=== PATIENT | female | born 1995 | race Asian ===

== ENCOUNTER 2023-12-09 20:52 | Emergency (ER) | payer OTHER, SELFPAY ==
[2023-12-09 21:01] VITALS: BP 133/85
[2023-12-09 21:18] LABS: % Basophils 0.8 % (0-2); % Eosinophils 3.1 % (0-6); % Immature Granulocytes 0.3 % (0-0.5); % Lymphocytes 34.6 % (20.5-51.1); % Monocytes 6.6 % (1.7-9.3); % Neutrophils 54.6 % (42.2-75.2); Absolute Basophils 0.1 10^3/uL (0-0.2); Absolute Eosinophils 0.2 10^3/uL (0-0.7); Absolute Lymphocytes 2.6 10^3/uL (1.2-3.4); Absolute Monocytes 0.5 10^3/uL (0.1-0.6); Absolute Neutrophils 4.1 10^3/uL (1.4-6.5); Hematocrit 35.4 % (37.0-47.0); Hemoglobin 12.5 g/dL (12.0-16.0); Mean Corp Hgb Conc. 35.3 g/dL (33.0-37.0); Mean Corpuscular Hgb 29.7 pg (27.0-31.0); Mean Corpuscular Volume 84.1 fL (81.0-99.0); Mean Platelet Volume 9.4 fL (7.4-10.4); Nucleated Red Blood Cells % 0 %; Platelet Count 241 10^3/uL (130-400); Red Blood Cell Count 4.21 10^6/uL (4.20-5.40); Red Cell Dist. Width 12.8 % (11.5-14.5); White Blood Cell Count 7.4 10^3/uL (4.8-10.8)
[2023-12-09 21:34] LABS: Blood Urea Nitrogen 16 mg/dl (7-17); Calcium 9.5 mg/dl (8.4-10.2); Carbon Dioxide 26 mmol/L (22-30); Chloride 105 mmol/L (98-107); Glucose 98 mg/dl (70-99); Potassium 4.8 mmol/L (3.5-5.1); Sodium 134 mmol/L (135-145); eGFR > 60.00
--- NOTE | 2023-12-09 21:59 | ED.GENMED ---
History of Present Illness
General
Chief Complaint: Vaginal Bleeding
Time Seen by Provider: 12/09/23 21:43
Travel History
Have you had any contact with someone who has COVID-19?: No
Do you have any symptoms of coronavirus? Fever > 100 degrees, chills, cough, shortness of breath, sore throat, loss of taste or smell, muscle aches, or headache?: No
History of Present Illness
History of Present Illness:
28-year-old female, G1, P0 presents to the emergency department for evaluation of vaginal spotting for the past 9 to 10 days. She has taken several home test that were all positive. Her last full period began on October 22. States that
this episode of bleeding was delayed from her normal menstrual cycle. Denies any abdominal pain. Reports that she uses a diva cup and 1 pad daily, amount of bleeding is substantially less than her typical menstrual cycle. Denies any fevers or
chills.
Review of Systems
Review of Systems
Allergies reviewed?: Yes
All Other Systems: ROS reviewed and negative except as documented in HPI and ROS
Phy Exam
Physical Exam
Physical Exam:
GEN: Well appearing, NAD, WDWN
HEENT: Oral mucosa moist, no scleral icterus
Cardiac: Regular rate
Lung: No respiratory distress, no tachypnea
MSK: No gross deformity or injuries
Skin: Good color, no pallor or jaundice, no rashes
Neuro: AO x3, moves all extremities freely
Psych: Calm, cooperative
Course
Orders/Labs/Results
Orders:
Orders
12/09/23 21:04
Pulse Ox/spot Check [RESP] Urgent
Quantity: 1
Special Instructions: ON ROOM AIR
12/09/23 21:10
Type+Screen Urgent
Basic Metabolic Panel Urgent
Beta HCG Quantitative Urgent
Is this a screen?: No
Complete Blood Count/With Diff Urgent
12/09/23 22:06
US W Transvaginal Urgent
Comment:
Reason For Exam: vag bleeding
Abnormal Lab Results
12/09/23
21:10
Hct 35.4 L %
(37.0-47.0)
Sodium 134 L mmol/L
(135-145)
12/09/23 21:10
12/09/23 21:10
Vital Signs
Initial and Last Documented VS:
Initial Vital Signs
Temp Pulse Resp BP Pulse Ox
99.2 F 74 15 133/85 99
12/09/23 21:01 12/09/23 21:01 12/09/23 21:01 12/09/23 21:01 12/09/23 21:01
Last Documented Vital Signs
Temp Pulse Resp BP Pulse Ox
99.2 F 72 14 113/76 98
12/09/23 21:01 12/10/23 00:40 12/10/23 00:40 12/10/23 00:40 12/10/23 00:40
MDM/Problems Addressed
MDM/Problems Addressed:
Patient is identified to have an IUP however uncertain if viable given lack of detectable cardiac activity. Certainly may represent early trimester with implantation bleeding but cannot discount the potential for threatened miscarriage.
Importance of close LITIGATION COUNSEL follow-up to discuss hCG trending and repeat ultrasound, her OB provider is through [facility] and she will contact them on Tuesday although incidentally has an appointment in 2 weeks
*Critical Care Note
Total Time (30-74mins, 75-104mins- exclusive of procedures): Not Applicable
ED Attending Note
-
Portions of this chart may have been created with voice recognition software.� Occasional wrong word or��sound alike� substitutions may have occurred due to the inherent limitations of voice recognition software.
Discharge Plan
Departure
Patient Disposition: Home (Routine Discharge)
Date of Disposition: 12/10/23
Time of Disposition: 00:04
Patient with high blood pressure during this ER visit?: No
Discharge Problem:
Miscarriage, threatened, early
Instructions: Threatened Miscarriage (DC)
Referrals:
UNKNOWN - PT DOES,NOT KNOW [Family Provider] -
Activity Restrictions/Additional Instructions:
Your ultrasound shows a gestational sac within the uterus that suggests an early intrauterine however there is no visible heart activity. This could indicate early or could indicate an impending miscarriage. You will need a
repeat hormone blood test within 1 to 2 weeks as well as a potential repeat ultrasound during that time. Please contact your [facility] on Tuesday to discuss next steps
Interventions
Interventions:
*Risk Screen - Suicide Last Done: 12/09/23 21:01
*General Assessment Last Done: 12/09/23 21:01
*Neglect/Abuse Screening Last Done: 12/09/23 21:01
ED- Fall Risk Assessment Last Done: 12/10/23 00:00
*ED COVID-19 Vaccine History Last Done: 12/09/23 22:21
*Nursing Disposition Last Done: 12/10/23 00:40
ED-Female Genitourinary Assessment Last Done: 12/09/23 22:22
Discharge Date and Time
Discharge Date/Time: 12/10/23 00:42
Print Language: GUYANESE
[2023-12-09 22:20] VITALS: BMI 21.8
[2023-12-10 00:38] VITALS: BP 113/76
[2023-12-10 00:40] VITALS: BP 113/76
== END 2023-12-10 00:42 | disposition home or self-care (01) ==
LOC: EMR 20:52
PROVIDERS: Emergency Medicine; EMERGENCY PHYSICIAN Emergency Medicine
DX: O20.0 Threatened abortion (principal); Z3A.01 Less than 8 weeks gestation of pregnancy
CPT/HCPCS: 99284; 76801; 76817; 80048; 84702; 85025; 86850; 86900; 86901

== ENCOUNTER → 2024-02-28 12:32 | Emergency (ER) | payer OTHER, SELFPAY ==
[2024-02-28 12:35] VITALS: BP 109/71
--- NOTE | 2024-02-28 12:42 | ED.GENMED ---
History of Present Illness
<Gayle Spicer PA-C - Last Filed: 02/28/24 17:30>
General
Chief Complaint: Chest Pain
Source: patient
Exam Limitations: none
Time Seen by Provider: 02/28/24 12:41
Nursing documentation reviewed up to this point in time: agreed with
History of Present Illness
History of Present Illness:
This is a 28-year-old female with a history of hypothyroidism who is presenting emergency department today with concerns of left-sided chest discomfort/spasm. Patient states that this started 5 days ago after she was lifting boxes one day.
Patient states that she will feel a spasm and discomfort in her left chest that will come and go. Patient states that there is nothing particularly makes her symptoms worse. Patient states that she notices that the pain will get better if she
walks around. Patient denies any pain or swelling her legs, patient denies any recent long distance travel, patient [place] any shortness of breath. Patient [place] any palpitations. Patient denies any trauma to the chest wall. Patient has had spasms
before but has never lasted this long. 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 Patient states that her current is complicated by hypothyroidism and subchorionic hemorrhage which is being managed by [facility]
maternal medicine. This is her first .
Review of Systems
<Gayle Spicer PA-C - Last Filed: 02/28/24 17:30>
Review of Systems
All Other Systems: ROS reviewed and negative except as documented in HPI and ROS
Phy Exam
<Gayle Spicer PA-C - Last Filed: 02/28/24 17:30>
Physical Exam
Physical Exam:
General: Patient is well appearing and in no acute distress; non-toxic
Skin: Warm and dry, no rashes or lesions
Head: Normocephalic, atraumatic
Eyes: Sclera non-icteric. EOMs intact. PERRLA.
Cardiac: Regular rate and rhythm, no murmurs
Peripheral Vascular: No lower extremity swelling or edema, no signs of DVT
Pulm: Normal respiratory effort
Abdomen: No abdominal tenderness
Musculoskeletal: Mild tenderness to palpation of the external chest wall. Palpable spasm noted in the left pectoralis.
Neuro: CN II-XII intact, no focal neurologic deficits.
Psychiatric: Appropriate mood and affect.
Scores
<Gayle Spicer PA-C - Last Filed: 02/28/24 17:30>
Heart Score for Chest Pain Patients
STEMI patient?: No
History: Slightly or Non-Suspicious
ECG: Normal
Age: </= 45 years
Risk Factors: No Risk Factors
Troponin: </= Normal Limit
Heart Score for Chest Pain Patients: 0
Heart Score Risk: 2.5% MACE over next 6 weeks
Course
<Gayle Spicer PA-C - Last Filed: 02/28/24 17:30>
Orders/Labs/Results
Orders:
Orders
02/28/24 12:38
ECG [Electrocardiogram (*1)] Urgent
Reason for Study: Chest Pain
EKG- Treatment ONCE
02/28/24 13:00
Heart Tones ONCE
02/28/24 13:05
Complete Blood Count/With Diff Urgent
Comprehensive Metabolic Panel Urgent
Troponin I Urgent
02/28/24 14:07
Peripheral Venous Lwr Ext Bilat US [US Periph Venous LOWER Ext Chris] Urgent
Comment:
Reason For Exam: chest pain, shortness of breath
Abnormal Lab Results
02/28/24
13:05
RBC 3.96 L 10^6/uL
(4.20-5.40)
Hgb 11.9 L g/dL
(12.0-16.0)
Hct 32.7 L %
(37.0-47.0)
Lymphocytes % 17.2 L %
(20.5-51.1)
Sodium 134 L mmol/L
(135-145)
Creatinine 0.5 L mg/dL
(0.6-1.0)
Glucose 104 H mg/dl
(70-99)
02/28/24 13:05
02/28/24 13:05
Vital Signs
Initial and Last Documented VS:
Initial Vital Signs
Temp Pulse Resp BP Pulse Ox
98.4 F 66 18 109/71 100
02/28/24 12:35 02/28/24 12:35 02/28/24 12:35 02/28/24 12:35 02/28/24 12:35
Last Documented Vital Signs
Temp Pulse Resp BP Pulse Ox
98.4 F 70 18 108/70 99
02/28/24 12:35 02/28/24 15:00 02/28/24 12:35 02/28/24 15:00 02/28/24 15:00
<Jr Munguia MD - Last Filed: 02/28/24 14:37>
Orders/Labs/Results
Orders:
Orders
02/28/24 12:38
ECG [Electrocardiogram (*1)] Urgent
Reason for Study: Chest Pain
EKG- Treatment ONCE
02/28/24 13:00
Heart Tones ONCE
02/28/24 13:05
Complete Blood Count/With Diff Urgent
Comprehensive Metabolic Panel Urgent
Troponin I Urgent
02/28/24 14:07
Peripheral Venous Lwr Ext Bilat US [US Periph Venous LOWER Ext Chris] Urgent
Comment:
Reason For Exam: chest pain, shortness of breath
Abnormal Lab Results
02/28/24
13:05
RBC 3.96 L 10^6/uL
(4.20-5.40)
Hgb 11.9 L g/dL
(12.0-16.0)
Hct 32.7 L %
(37.0-47.0)
Lymphocytes % 17.2 L %
(20.5-51.1)
Sodium 134 L mmol/L
(135-145)
Creatinine 0.5 L mg/dL
(0.6-1.0)
Glucose 104 H mg/dl
(70-99)
02/28/24 13:05
02/28/24 13:05
Vital Signs
Initial and Last Documented VS:
Initial Vital Signs
Temp Pulse Resp BP Pulse Ox
98.4 F 66 18 109/71 100
02/28/24 12:35 02/28/24 12:35 02/28/24 12:35 02/28/24 12:35 02/28/24 12:35
Last Documented Vital Signs
Temp Pulse Resp BP Pulse Ox
98.4 F 70 18 108/70 99
02/28/24 12:35 02/28/24 15:00 02/28/24 12:35 02/28/24 15:00 02/28/24 15:00
Jeremylt;Gayle Spicer PA-C - Last Filed: 02/28/24 17:30>
MDM/Problems Addressed
Differential Diagnosis Includes:
Differentials include pulmonary embolism, musculoskeletal sprain/strain, electrolyte derangement, ACS
MDM/Problems Addressed:
Chest pain/spasm:
This is a 28-year-old female with a history of hypothyroidism who is presenting emergency department today with concerns of left-sided chest discomfort/spasm. Patient states that this started 5 days ago after she was lifting boxes one day.
Patient states that she will feel a spasm and discomfort in her left chest that will come and go. On exam, patient is well appearing and her vitals are stable. No murmurs are appreciated on exam. There is palpable spasm noted on the left external
chest wall with no signs of trauma. Patient's vitals are stable. Her CBC and CMP are unremarkable. Symptoms likely musculoskeletal in nature considering palpable spasm. However, considering her factors for PE, peripheral vascular ultrasound was
obtained to assess pretest probability for PE and the ultrasound was negative. Patient stable for discharge to follow-up with her DESIGN ENGINEERING INTERN. Her heart tones were 140.
Chronic conditions affecting care:
hypothyroidism, subchorionic hemorrhage
Acute Exacerbation and/or Progression of Chronic Illness:
n/a
<Gayle Spicer PA-C - Last Filed: 02/28/24 17:30>
*Pulse Oximetry
Patient hypoxic: no
*EKG
Interpreted by ED Provider?: Yes
EKG Intrepretation Date: 02/28/24
Interpretation: abnormal
Comparison EKG: no comparison EKG present
Heart Rate: 57
Rate: bradycardiac
Rhythm: sinus
[place]: normal axis
Interval: normal interval and normal QT interval
QRS Pattern: normal QRS
Ischemia: no ischemia
*Critical Care Note
Total Time (30-74mins, 75-104mins- exclusive of procedures): Not Applicable
Data Reviewed
Review of Other/Old Records Reveals: Records (Reviewed ER physician documentation from 12/09/2023 where patient had a threatened miscarriage) and Discharge Summary (no discharge summaries in [facility] to review)
Source: patient and records
Further Testing Considered But Not Given:
Considered D-dimer however suspicion for PE is low and active spasm can be palpated on exam
<Gayle Spicer PA-C - Last Filed: 02/28/24 17:30>
Patient Management
Escalation/DeEscalation of care consider admission/obs:
Patient stable for discharge
ED Attending Note
<Gayle Spicer PA-C - Last Filed: 02/28/24 17:30>
-
Portions of this chart may have been created with voice recognition software.� Occasional wrong word or��sound alike� substitutions may have occurred due to the inherent limitations of voice recognition software.
<Jr Munguia MD - Last Filed: 02/28/24 14:37>
ED Attending Note
Patient seen and examined by attending physician: Yes
I performed the substantive portion of visit, reviewed & personally made and approve the management plan that is documented in note by myself or CHI.: Yes
ED Attending Note:
28-year-old female G1, P0, 17 weeks presents with some muscle twitching in her left upper chest wall. Started last after lifting boxes. She felt no pain while lifting. No pleuritic pain no shortness of breath no chest pain no
back pain no fever chills no abdominal pain. Patient does have a known subchorionic hemorrhage. This had some bleeding with this.
On exam patient is nontoxic in no distress. Lungs clear and equal. Heart regular rate and rhythm no murmur. Abdomen soft and nontender. She is warm and dry. She is perfusing well. She has no calf swelling tenderness cord or erythema. Good
distal pulses and color.
EKG is normal. Labs are normal. You can actually palpate the occasional muscle spasm she feels. Highly doubt pulmonary emboli. Lengthy discussion of risk benefit of going down this pathway and D-dimer ordering or CAT scan ordering. Given the
incredibly low clinical suspicion and the false positive rate of D-dimer we feel this is not the appropriate course. We will do leg ultrasounds to lower a statistical risk that is very low to begin with. If this is all negative symptomatic
treatment and follow-up
Discharge Plan
Departure
Patient Disposition: Home (Routine Discharge)
Date of Disposition: 02/28/24
Time of Disposition: 15:18
Patient with high blood pressure during this ER visit?: No
Condition: Good
Discharge Problem:
Muscle spasm, Chest wall discomfort
Instructions: Chest pain, Muscle spasms (muscle cramps)
Referrals:
Megan Mills CRNP [Family Provider] -
Activity Restrictions/Additional Instructions:
Please return to the emergency department should you experience an acute worsening of your symptoms, chest pain, shortness of breath, pain or swelling in your legs, lightheadedness, fainting spells, palpitations, or any other signs or symptoms
concerning to you.
Please follow up with your electronic test technician.
Interventions
Interventions:
*Risk Screen - Suicide Last Done: 02/28/24 12:35
*General Assessment Last Done: 02/28/24 12:35
*Neglect/Abuse Screening Last Done: 02/28/24 12:35
ED- Fall Risk Assessment Last Done: 02/28/24 13:26
ED- Cardiac Assessment Last Done: 02/28/24 13:10
Discharge Date and Time
Print Language: [email or web address]
[2024-02-28 13:00] VITALS: BP 116/64
[2024-02-28 13:18] LABS: % Basophils 0.4 % (0-2); % Eosinophils 1.4 % (0-6); % Immature Granulocytes 0.4 % (0-0.5); % Lymphocytes 17.2 % (20.5-51.1); % Monocytes 5.5 % (1.7-9.3); % Neutrophils 75.1 % (42.2-75.2); Absolute Eosinophils 0.1 10^3/uL (0-0.7); Absolute Lymphocytes 1.4 10^3/uL (1.2-3.4); Absolute Monocytes 0.4 10^3/uL (0.1-0.6); Absolute Neutrophils 5.9 10^3/uL (1.4-6.5); Hematocrit 32.7 % (37.0-47.0); Hemoglobin 11.9 g/dL (12.0-16.0); Mean Corp Hgb Conc. 36.4 g/dL (33.0-37.0); Mean Corpuscular Hgb 30.1 pg (27.0-31.0); Mean Corpuscular Volume 82.6 fL (81.0-99.0); Mean Platelet Volume 10.3 fL (7.4-10.4); Nucleated Red Blood Cells % 0 %; Platelet Count 215 10^3/uL (130-400); Red Blood Cell Count 3.96 10^6/uL (4.20-5.40); Red Cell Dist. Width 12.8 % (11.5-14.5); White Blood Cell Count 7.9 10^3/uL (4.8-10.8)
[2024-02-28 13:20] VITALS: BMI 20.9
[2024-02-28 13:29] LABS: ALT (SGPT) 10 U/L (0-35); AST (SGOT) 23 U/L (14-36); Albumin 3.9 g/dl (3.5-5.0); Alkaline Phosphatase 65 U/L (38-126); Blood Urea Nitrogen 7 mg/dl (7-17); Calcium 9.4 mg/dl (8.4-10.2); Carbon Dioxide 22 mmol/L (22-30); Chloride 105 mmol/L (98-107); Estimated Creatinine Clearance > 125 ml/min; Glucose 104 mg/dl (70-99); Potassium 4.4 mmol/L (3.5-5.1); Sodium 134 mmol/L (135-145); Total Bilirubin 0.3 mg/dl (0.2-1.3); Total Protein 6.3 g/dl (6.3-8.2); eGFR > 60.00
[2024-02-28 13:41] LABS: Troponin I < 0.012 ng/ml
[2024-02-28 14:00] VITALS: BP 121/72
[2024-02-28 15:00] VITALS: BP 108/70
== END | disposition home or self-care (01) ==
LOC: EMR 12:32
PROVIDERS: Physician Assistant; EMERGENCY PHYSICIAN Emergency Medicine; FAMILY PHYSICIAN Nurse Practitioner
DX: O99.891 Other specified diseases and conditions complicating pregnancy (principal); M62.838 Other muscle spasm; R07.89 Other chest pain; E03.9 Hypothyroidism, unspecified; Z3A.17 17 weeks gestation of pregnancy; R22.43 Localized swelling, mass and lump, lower limb, bilateral
CPT/HCPCS: 99284; 80053; 84484; 85025; 93005; 93970